=== PATIENT | female | born 2000 | race Caucasian/White ===

== ENCOUNTER 2022-09-10 22:04 | Emergency (ER) | payer OTHER ==
[~2022-09-10] VITALS: Ht 167.6 cm; Wt 74.4 kg
[2022-09-10 22:13] VITALS: BP 120/97
[2022-09-11 01:58] LABS: APPEARANCE,URINE SL CLOUDY (CLEAR); BILIRUBIN,URINE NEGATIVE (NEGATIVE); BLOOD, URINE NEGATIVE (NEGATIVE); COLOR,URINE YELLOW (YELLOW); LEUKOCYTE ESTERASE ,URINE NEGATIVE (NEGATIVE); NITRITE, URINE NEGATIVE (NEGATIVE); UGLUCOSE NEGATIVE (NEGATIVE)
--- NOTE | 2022-09-11 02:09 | NUR ---
Patient taken to bed 3.
--- NOTE | 2022-09-11 02:18 | NUR ---
ER physician at bedside assessing patient.
[2022-09-11] MEDS ORDERED: cefTRIAXone 500 MG in LIDOCAINE MPF 1% 1 ML IM ONE (02:25)
[2022-09-11] MEDS ORDERED: cefTRIAXone 500 MG VIAL ONE (02:36)
[2022-09-11] MEDS ORDERED: LIDOCAINE MPF 1% 5 ML ONE (02:37)
[2022-09-11] MEDS ORDERED: DOXY-690 PO (03:43)
[2022-09-11 03:49] VITALS: BP 118/78
== END 2022-09-11 03:50 | disposition home or self-care (01) ==
LOC: MED 22:04
DX: A64 Unspecified sexually transmitted disease (principal); N72 Inflammatory disease of cervix uteri; Z79.899 Other long term (current) drug therapy
CPT/HCPCS: 81003; 87491; 96372; 99283; J0696; J2001

== ENCOUNTER 2023-05-19 17:56 | Emergency (ER) | payer OTHER ==
[~2023-05-19 17:56] MED LIST: DOXY-690 PO
--- NOTE | 2023-05-19 18:53 | NUR ---
PATIENT LEFT WITHOUT BEING SEEN BY . NO FURTHER CARE PROVIDED FOR PATIENT.
== END 2023-05-19 18:53 | disposition left against medical advice (07) ==
LOC: MED 17:56
DX: N93.9 Abnormal uterine and vaginal bleeding, unspecified (principal); Z53.21 Procedure and treatment not carried out due to patient leaving prior to being seen by health care provider

== ENCOUNTER 2023-05-20 11:49 | Emergency (ER) | payer OTHER ==
[~2023-05-20] VITALS: Ht 165.1 cm; Wt 68.9 kg
[2023-05-20 11:56] VITALS: BP 133/77; PULSE 102; RESP 20; TEMP 97.3; O2SAT 99
--- NOTE | 2023-05-20 12:01 | NUR ---
PT WALKED TO ROOM 4 W/STEADY GATE.
--- NOTE | 2023-05-20 12:06 | NUR ---
23 YO F PRESENTS W/VAG BLEED X 1WK W/DYSURIA, URINARY FREQUENCY. PT DENIES N,V,D, FEVER, CHILLA, HEMATURIA, CALIX, , DENIES HX OF CYST, FIBROIDS. PT STATES SHE MIGHT LEAVE AND SEE PCP. NAD NOTED, SAFETY MAINTAINED.
--- NOTE | 2023-05-20 12:19 | NUR ---
PT ELOPED FROM ER
--- NOTE | 2023-05-20 14:11 | NUR ---
PT REQUESTED A BED PALACIOS TO URINE, PLACED ON PURE WICK
--- NOTE | 2023-05-20 16:01 | NUR ---
PT SLEEPING W/ELEVATED HEAD. CONTINUE TO MONITOR
--- NOTE | 2023-05-20 18:55 | NUR ---
PT SITTING QUIETLY, NO CHANGE IN CONDITION, CONTINUE TO MONITOR FROM NURSING STATION BY ED STAFF
== END 2023-05-20 12:19 | disposition left against medical advice (07) ==
LOC: MED 11:49
DX: N93.9 Abnormal uterine and vaginal bleeding, unspecified (principal); Z53.21 Procedure and treatment not carried out due to patient leaving prior to being seen by health care provider
CPT/HCPCS: 99281